=== PATIENT | male | born 1955 | race Hispanic/Latino ===

== ENCOUNTER 2018-04-05 08:14 | Emergency (ER) | payer MEDICARE, BC ==
[2018-04-05] MEDS ORDERED: Tdap Vaccine 0.5 ml Vial (10-64 yrs) IM ONE (09:31)
--- NOTE | 2018-04-05 10:03 | ED PDOC ---
Upper Extremity Pain/Injury Time Seen by Provider: 04/05/18 09:12 Chief Complaint (Nursing): Trauma Chief Complaint (Provider): finger injury History Per: Patient, Family () History/Exam Limitations: no limitations Onset/Duration Of Symptoms: Sudden Onset Current Symptoms Are (Timing): Still Present Additional Complaint(s): 62 year old male presents to the emergency department with for an evaluation of a left, 3rd digit injury around 0745 earlier today. states patient accidentally caught his finger in a metal door as it closed, pulled away and subsequently lost the tip of his left 3rd digit. Patient denies having pain, numbness or tingling sensation. Unsure of last tetanus vaccine. Past Medical History Reviewed: Historical Data, Nursing Documentation, Vital Signs Vital Signs: Last Vital Signs Temp 97.9 F 04/05/18 09:05 Pulse 70 04/05/18 09:05 Resp 16 04/05/18 09:05 BP 187/72 H 04/05/18 09:05 Pulse Ox 98 04/05/18 09:05 - Medical History PMH: HTN, Hyperlipidemia Denies: Chronic Kidney Disease - Family History Family History: States: Unknown Family Hx - Living Arrangements Living Arrangements: With Family - Immunization History Hx Tetanus Toxoid Vaccination: (Cannot recall) - Home Medications Home Medications: Ambulatory Orders Medication Instructions Recorded Clindamycin [Cleocin] 300 mg PO QID 7 Days cap 04/05/18 - Allergies Allergies/Adverse Reactions: Allergies Allergy/AdvReac Type Severity Reaction Status Date / Time Penicillins Allergy URTICARIA Verified 04/05/18 09:12 Review of Systems ROS Statement: Except As Marked, All Systems Reviewed And Found Negative Musculoskeletal: Positive for: Other (left 3rd digit injury). Negative for: Hand Pain (left 3rd digit) Physical Exam - Reviewed Nursing Documentation Reviewed: Yes Vital Signs Reviewed: Yes - Physical Exam Appears: Positive for: No Acute Distress Neck: Positive for: Normal, Painless ROM, Supple Cardiovascular/Chest: Positive for: Regular Rate, Rhythm Respiratory: Positive for: Normal Breath Sounds. Negative for: Respiratory Distress Pulses-Radial (L): 2+ Back: Positive for: Normal Inspection. Negative for: L CVA Tenderness, R CVA Tenderness Extremity: Positive for: Normal ROM (left 3rd digit with sensation intact and has full ROM of finger), Deformity (1cm of finger missing from left distal 3rd digit tip; no bone exposure identified; no active bleeding; mild tender at tip) , Other (left 3rd digit nailbed intact with distal 3rd subungal hematoma) Neurologic/Psych: Positive for: Alert (x3), Oriented. Negative for: Motor/ Sensory Deficits - ECG O2 Sat by Pulse Oximetry: 98 (RA) Pulse Ox Interpretation: Normal - Progress ED Course And Treament: 1000: Spoke with Dr. Lopez who reviewed images of the laceration. States pt. should be admitted and he will do a graft tomorrow. Pt. has capacity to make decisions. Is aaox3. Stable. Pain controlled. Does not want to stay in the ER or the hospital for further evaluation and treatment. Is aware that he needs a graft on his finger laceration and will need admission accordingly. Pt. will go against medical advice. Will give rx for clinda, but pt. aware that is not the solution to his laceration. Aware of infection, bleeding, loss of finger, or from not getting treatment and further evaluation. at bedside and agrees with pt. decision. Several attempts made to contact pt. pcp and not able to get through. Pt. states she will take him to [facility] instead because they live near there. Medical Decision Making Medical Decision Making: Initial Impression: Finger injury Initial Plan: * Xray hand (left) * Adacel 0.5ml IM Scribe Attestation: Documented by Ailin Lopez, acting as a scribe for Harshil Arana MD. Provider Scribe Attestation: All medical record entries made by the Scribe were at my direction and personally dictated by me. I have reviewed the chart and agree that the record accurately reflects my personal performance of the history, physical exam, medical decision making, and the department course for this patient. I have also personally directed, reviewed, and agree with the discharge instructions and disposition. Disposition - Clinical Impression Clinical Impression: Finger amputation, traumatic - Patient ED Disposition Is Patient to be Admitted: No Counseled Patient/Family Regarding: Studies Performed, Diagnosis, Rx Given - Disposition Referrals: Kedar Lopez MD [Staff Provider] - Disposition: Against Medical Advice Disposition Time: 10:14 Condition: STABLE Additional Instructions: You are going against medical advice. You are aware of possible loss of your finger, infection, bleeding, or other issues that may result from the lack of treatment for your finger. Please come back soon as possible for further evaluation and treatment. You need admission and a graft on your finger amputation. Prescriptions: Clindamycin [Cleocin] 300 mg PO QID 7 Days cap Instructions: Amputation of the Finger or Fingertip Forms: [facility] (Cuban)
[2018-04-05 11:24] VITALS: BP 160/72; PULSE 88; RESP 18; TEMP 97.8; O2SAT 99
--- NOTE | 2018-04-05 14:38 | RAD ---
PROCEDURE: Left middle finger radiographs. HISTORY: injury and pain COMPARISON: None. TECHNIQUE: AP radiograph of the left hand, as well as spot oblique and lateral images of left middle finger were obtained. FINDINGS: LEFT MIDDLE FINGER: There is partial amputation of soft tissue superficial to the tuft of the distal phalanx left long finger without definite bony disruption grossly evident. Gauze obscures fine bone and soft-tissue detail. Remainder of the left hand (as seen on the AP view) is grossly unremarkable. JOINTS: Normal. SOFT TISSUES: As above. OTHER FINDINGS: None. IMPRESSION: Partial amputation of soft tissues superficial to the tuft of long finger left hand without definite fracture associated. Gauze obscures fine soft tissue and bony detail.
== END 2018-04-05 10:22 | disposition home or self-care (01) ==
LOC: H.ER 08:14
DX: S68.623A Partial traumatic transphalangeal amputation of left middle finger, initial encounter (principal); W22.8XXA Striking against or struck by other objects, initial encounter; Y92.89 Other specified places as the place of occurrence of the external cause; E78.5 Hyperlipidemia, unspecified; I10 Essential (primary) hypertension; Z88.0 Allergy status to penicillin